=== PATIENT | female | born 1995 | race Caucasian/White ===

== ENCOUNTER 2021-11-13 21:25 | Inpatient (IN) | payer MEDICAID ==
[~2021-11-13] VITALS: Ht 177.8 cm; Wt 98.0 kg
[2021-11-13] MEDS ORDERED: TERBUTALINE SULFATE 1 MG/ML VIAL SUBCUT ONE (22:30)
[2021-11-13] MEDS ORDERED: OXYTOCIN/0.9 % SODIUM CHLORIDE 1,000 ML IV SCH (22:30)
[2021-11-13] MEDS ORDERED: MORPHINE SULFATE 10 MG/ML VIAL IVP PRN (22:30)
[2021-11-13] MEDS ORDERED: OXYTOCIN 10 UNIT/ML VIAL IM ONE (22:30)
[2021-11-13] MEDS ORDERED: LR 1,000 ML IV ONE (22:30)
[2021-11-13] MEDS: LR 1,000 ML IV SCH (23:19)
[2021-11-13 23:26] LABS: BASOPHILS # (AUTO) 0.1 K/uL (0.0-0.2); EOSINOPHILS % (AUTO) 0.4 % (0.0-4.0); HEMATOCRIT 36.1 % (36-48); HEMOGLOBIN 12.6 g/dL (12.0-16.0); LYMPHOCYTES # (AUTO) 2.6 K/uL (1.0-5.5); LYMPHOCYTES % (AUTO) 26.6 % (20.5-51.5); MEAN CORPUSCULAR HEMOGLOBIN 32 pg (27-31); MEAN CORPUSCULAR HGB CONC 35 % (32-36); MEAN CORPUSCULAR VOLUME 92 fL (79.0-98.0); MONOCYTES # (AUTO) 0.6 K/uL (0.0-1.0); MONOCYTES % (AUTO) 6.5 % (1.7-9.3); NEUTROPHILS # (AUTO) 6.4 K/uL (1.8-7.7); NEUTROPHILS % (AUTO) 65.5 % (40.0-70.0); PLATELET COUNT (AUTO) 170 K/uL (130-430); RED BLOOD CELL COUNT(AUTO) 3.93 MIL/uL (4.2-6.2); RED CELL DISTRIBUTION WIDTH 12.7 % (9.0-15.0); WHITE BLOOD COUNT (AUTO) 9.7 K/uL (4.8-10.8)
[2021-11-14] MEDS ORDERED: ROPIVACAINE HCL/PF 0.2% 200 ML ONE (00:54)
[2021-11-14] MEDS ORDERED: fentaNYL CITRATE/PF 100 MCG/2 ML AMP ONE (00:54)
[2021-11-14 01:29] VITALS: BP_SYST 119
[2021-11-14] MEDS ORDERED: LR 500 ML IV ONE (01:30)
[2021-11-14] MEDS ORDERED: FENT2mCg/mL-ROPIVA0.2%/NS EPID 200 ML EP SCH (01:30)
[2021-11-14] MEDS ORDERED: LIGHT MINERAL OIL 10 ML VIAL MC ONE (02:57)
[2021-11-14] MEDS ORDERED: NALOXONE HCL 0.4 MG/ML AMP (NARCAN) ONE (02:58)
[2021-11-14] MEDS ORDERED: LIDOCAINE PF 1% 30ML(POUR BTL) INJ ONE (02:58)
[2021-11-14] MEDS: LR 1,000 ML IV SCH (03:43)
[2021-11-14] MEDS ORDERED: WITCH HAZEL LEAF 1 MED.PAD MED.PAD TP PRN (09:00)
[2021-11-14] MEDS ORDERED: DOCUSATE SODIUM 100 MG CAPSULE PO SCH (09:00)
[2021-11-14] MEDS ORDERED: OXYTOCIN/0.9 % SODIUM CHLORIDE 1,000 ML IV ONE (09:00)
[2021-11-14] MEDS ORDERED: METHYLERGONOVINE MALEATE 0.2 MG TABLET PO PRN (09:00)
[2021-11-14] MEDS ORDERED: LANOLIN 7 GM OINT. TP PRN (09:00)
[2021-11-14] MEDS ORDERED: DERMOPLAST SPRAY TP PRN (09:00)
[2021-11-14] MEDS: IBUPROFEN 600 MG TABLET PO SCH ×2 (11:56→18:04)
[2021-11-14] MEDS ORDERED: OXYCODONE/ACETAMINOPHEN 5-325 TABLET PO PRN ×2 (19:00)
[2021-11-14] MEDS ORDERED: HYDROcodone/ACETAMIN 5-325 MG TAB (NORCO/ VICODIN) PO PRN (19:00)
[2021-11-14] MEDS ORDERED: NALOXONE HCL 0.4 MG/ML AMP (NARCAN) IVP PRN (19:00)
[2021-11-14] MEDS ORDERED: SENNOSIDES/DOCUSATE SODIUM 1 TAB TABLET(SENOKOT-S) PO SCH (21:00)
[2021-11-15] MEDS: IBUPROFEN 600 MG TABLET PO SCH ×2 (03:21→06:05)
[2021-11-15 07:08] LABS: BASOPHILS # (AUTO) 0.1 K/uL (0.0-0.2); BASOPHILS % (AUTO) 0.6 % (0.0-2.0); EOSINOPHILS # (AUTO) 0.1 K/uL (0.0-0.4); EOSINOPHILS % (AUTO) 1.1 % (0.0-4.0); HEMATOCRIT 31.3 % (36-48); HEMOGLOBIN 10.9 g/dL (12.0-16.0); LYMPHOCYTES % (AUTO) 32.6 % (20.5-51.5); MEAN CORPUSCULAR HEMOGLOBIN 32 pg (27-31); MEAN CORPUSCULAR HGB CONC 35 % (32-36); MEAN CORPUSCULAR VOLUME 93 fL (79.0-98.0); MONOCYTES # (AUTO) 0.6 K/uL (0.0-1.0); MONOCYTES % (AUTO) 6.5 % (1.7-9.3); NEUTROPHILS # (AUTO) 5.5 K/uL (1.8-7.7); NEUTROPHILS % (AUTO) 59.2 % (40.0-70.0); PLATELET COUNT (AUTO) 141 K/uL (130-430); RED BLOOD CELL COUNT(AUTO) 3.38 MIL/uL (4.2-6.2); WHITE BLOOD COUNT (AUTO) 9.3 K/uL (4.8-10.8)
== END 2021-11-15 16:07 | disposition home or self-care (01) | DRG 560 ==
LOC: OBSVTOIN 21:25 → SPU 21:25
PROVIDERS: ADMIT Obstetrics & Gynecology; ATTEND Obstetrics & Gynecology
PROC: 10E0XZZ Delivery of Products of Conception, External Approach (ICD-10-PCS; principal; 2021-11-14)
PROC: 0W8NXZZ Division of Female Perineum, External Approach (ICD-10-PCS; 2021-11-14)
PROC: 3E0R3BZ Introduction of Anesthetic Agent into Spinal Canal, Percutaneous Approach (ICD-10-PCS; 2021-11-14)
PROC: 00HU33Z Insertion of Infusion Device into Spinal Canal, Percutaneous Approach (ICD-10-PCS; 2021-11-14)
DX: O80 Encounter for full-term uncomplicated delivery (principal); Z37.0 Single live birth; Z20.822 Contact with and (suspected) exposure to COVID-19; Z3A.41 41 weeks gestation of pregnancy
CPT/HCPCS: 36415; 85025; 86592; 86886; 86900; 86901; J2001; J2310; J2590; J3010